=== PATIENT | female | born 1995 | race Caucasian/White ===

== ENCOUNTER 2018-11-01 17:06 | Emergency (ER) | payer OTHER ==
--- NOTE | 2018-11-01 17:14 | PDOC ---
Rapid Medical Evaluation Chief Complaint: Respiratory Time Seen by Provider: 11/01/18 17:12 Medical Evaluation: 11/01/18 17:12 I performed a brief in person evaluation. CC: Cough HPI: Pt is a 22 Yo female with a cough x 1 day. PE: Skin: Clear Lungs: Clear Heart: RRR MS: Moves all extremities without difficulty Neuro: Alert Psych: Appropriate affect Pt will go to [facility] for further evaluation. Discharge Disposition - Diagnosis Cough - Referrals - Patient Instructions - Post Discharge Activity
[2018-11-01 17:16] VITALS: BP 105/54; PULSE 106; TEMP 99.2; BMI 38.0
[2018-11-01] MEDS ORDERED: guaiFENesin/CODEINE 10 ML UNIT-DOSE CUPS PO ONE (18:19)
[2018-11-01] MEDS ORDERED: ONDANSETRON *ODT* 4 MG TABLET SL ONE (18:19)
[2018-11-01] MEDS ORDERED: DEXAMETHASONE LIQUID 0.5 MG/5 ML 240 ML BULK BOTTLE PO ONE (18:19)
[2018-11-01] MEDS ORDERED: ALBUTEROL SO4 2.5/IPRATROPIUM 0.5 INH SOL 3 ML VIAL.NEB. NEB ONE ×2 (18:19→18:22)
[2018-11-01] MEDS ORDERED: DEXAMETHASONE SOD PHOSPHATE 10 MG/1 ML VIAL ONE (18:21)
[2018-11-01] MEDS ORDERED: ONDANSETRON *ODT* 4 MG TABLET ONE (18:21)
[2018-11-01] MEDS ORDERED: guaiFENesin/CODEINE 5 ML UNIT-DOSE CUPS PO ONE (18:22)
--- NOTE | 2018-11-01 19:41 | PDOC ---
History of Present Illness - General Chief Complaint: Respiratory Stated Complaint: ASTHMA Time Seen by Provider: 11/01/18 17:12 History Source: Patient Exam Limitations: No Limitations Past History - Travel Traveled outside of the country in the last 30 days: No Close contact w/someone who was outside of country & ill: No - Past History Allergies/Adverse Reactions: Allergies No Known Allergies Allergy (Verified 11/01/18 17:15) Home Medications: Ambulatory Orders Albuterol Sulfate Inhaler - [Ventolin HFA Inhaler -] 1 - 2 inh PO Q4H #1 inhaler 11/01/18 Guaifenesin AC [Robitussin AC] 10 ml PO HS #100 ml MDD 1 11/01/18 Methylprednisolone [Medrol Dose Thang] 4 mg PO ASDIR #21 tablet 11/01/18 Immunization Status Up to Date: No - Social History Smoking Status: Current every day smoker Review of Systems - Review of Systems Able to Perform ROS?: Yes Comments:: 11/01/18 19:33 CONSTITUTIONAL: Absent: fever, chills, diaphoresis, generalized weakness, malaise, loss of appetite HEENT: Absent: rhinorrhea, nasal congestion, throat pain, throat swelling, difficulty swallowing, mouth swelling, ear pain, eye pain, visual Changes CARDIOVASCULAR: Absent: chest pain, loss of consciousness, palpitations, irregular heart rate, peripheral edema RESPIRATORY: Absent: cough, shortness of breath, dyspnea with exertion, orthopnea, wheezing, stridor, hemoptysis GASTROINTESTINAL: Absent: abdominal pain, abdominal distension, nausea, vomiting, diarrhea, constipation, melena, hematochezia GENITOURINARY: Absent: dysuria, frequency, urgency, hesitancy, hematuria, flank pain, genital pain MUSCULOSKELETAL: Absent: myalgia, arthralgia, joint swelling SKIN: Absent: rash, itching, pallor HEMATOLOGIC/IMMUNOLOGIC: Absent: easy bleeding, easy bruising, lymphadenopathy, frequent infections ENDOCRINE: Absent: unexplained weight gain, unexplained weight loss, heat intolerance, cold intolerance NEUROLOGIC: Absent: headache, focal weakness or paresthesias, dizziness, unsteady gait, seizure, mental status changes, bladder or bowel incontinence PSYCHIATRIC: Absent: anxiety, depression, suicidal or homicidal ideation, hallucinations. Is the patient limited Albanian proficient: No *Physical Exam - Vital Signs Last Vital Signs Temp Pulse Resp BP Pulse Ox 99.2 F 106 H 18 105/54 L 97 11/01/18 17:13 11/01/18 17:13 11/01/18 17:13 11/01/18 17:13 11/01/18 17:13 - Physical Exam Comments: 11/01/18 19:33 GENERAL: Well developed, well nourished. Awake and alert. No acute distress. HEENT: Normocephalic, atraumatic. PERRLA, EOMI. No conjunctival pallor. Sclera are non- icteric. Moist mucous membranes. Oropharynx is clear. NECK: Supple. Full ROM. No JVD. Carotid pulses 2+ and symmetric, without bruits. No thyromegaly. No lymphadenopathy. CARDIOVASCULAR: Regular rate and rhythm. No murmurs, rubs, or gallops. Distal pulses are 2+ and symmetric. PULMONARY: No evidence of respiratory distress. Lungs clear to auscultation bilaterally. No wheezing, rales or rhonchi. ABDOMINAL: Soft. Non-tender. Non-distended. No rebound or guarding. No organomegaly. Normoactive bowel sounds. MUSCULOSKELETAL Normal range of motion at all joints. No bony deformities or tenderness. No CVA tenderness. EXTREMITIES: No cyanosis. No clubbing. No edema. No calf tenderness. SKIN: Warm and dry. Normal capillary refill. No rashes. No jaundice. NEUROLOGICAL: Alert, awake, appropriate. Cranial nerves 2-12 intact. No deficits to light touch and temperature in face, upper extremities and lower extremities. No motor deficits in the in face, upper extremities and lower extremities. Normoreflexic in the upper and lower extremities. Normal speech. Toes are down- going bilaterally. Gait is normal without ataxia. PSYCHIATRIC: Cooperative. Good eye contact. Appropriate mood and affect. Moderate Sedation - Procedure Monitoring Vital Signs: Procedure Monitoring Vital Signs Temperature 99.2 F 11/01/18 17:13 Pulse Rate 106 H 11/01/18 17:13 Respiratory Rate 18 11/01/18 17:13 Blood Pressure 105/54 L 11/01/18 17:13 O2 Sat by Pulse Oximetry (%) 97 11/01/18 17:13 ED Treatment Course - Medications Given in the ED: ED Medications Discontinued Medications Generic Name Dose Route Start Last Admin Trade Name Freq PRN Reason Stop Dose Admin Albuterol/Ipratropium 1 amp 11/01/18 18:19 11/01/18 19:16 Duoneb - NEB 11/01/18 18:20 1 amp ONCE ONE Administration Dexamethasone 10 mg 11/01/18 18:19 11/01/18 19:16 Decadron Liquid - PO 11/01/18 18:20 1 ml ONCE ONE Administration Guaifenesin/Codeine Phosphate 10 ml 11/01/18 18:19 11/01/18 19:16 Robitussin Ac - PO 11/01/18 18:20 10 ml ONCE ONE Administration Ondansetron HCl 4 mg 11/01/18 18:19 11/01/18 19:16 Zofran Odt - SL 11/01/18 18:20 4 mg ONCE ONE Administration *DC/Admit/Observation/Transfer Diagnosis at time of Disposition: Bronchitis - Discharge Dispostion Disposition: HOME Condition at time of disposition: Stable Decision to Admit order: No - Referrals Referrals: Gaviota Messina MD [Primary Care Provider] - - Patient Instructions Printed Discharge Instructions: DI for Acute Bronchitis Additional Instructions: You have bronchitis. Your flu test was negative today. Please take the albuterol inhaler every 4 hours until her symptoms resolve. Please take the Medrol Dosepak (steroids) as directed. Start taking them tomorrow. You may take Robitussin with codeine for cough. He does before bed. Do not drink or drive after taking his medication as it may make you sleepy. Please follow up with your primary care doctor this week. Return to the ER if you have difficulty breathing, shortness of breath, nausea, vomiting or give any changes in her symptoms. - Post Discharge Activity Forms/Work/School Notes: Back to Work
== END 2018-11-01 20:01 | disposition home or self-care (01) ==
LOC: JERFT 17:06 → EDBD 17:06 → JERFT 20:01
PROC: 3E0F7GC Introduction of Other Therapeutic Substance into Respiratory Tract, Via Natural or Artificial Opening (ICD-10-PCS; principal; 2018-11-01)
DX: J20.9 Acute bronchitis, unspecified (principal)
CPT/HCPCS: 87804; 99281-25; Q0162

== ENCOUNTER 2019-12-04 13:55 | Emergency (ER) | payer OTHER ==
[2019-12-04 14:16] VITALS: BMI 35.2
[2019-12-04] MEDS ORDERED: SODIUM CHLORIDE 1,000 ML IV STA (15:30)
[2019-12-04] MEDS ORDERED: ACETAMINOPHEN 1000 MG/100 ML VIAL (NON FORMULARY) IVPB ONE (15:30)
[2019-12-04] MEDS ORDERED: ACETAMINOPHEN INJECTION 100 ML IVPB ONE (15:41)
[2019-12-04] MEDS ORDERED: ALBUTEROL SO4 2.5/IPRATROPIUM 0.5 INH SOL 3 ML VIAL.NEB. NEB ONE ×2 (15:50→15:56)
[2019-12-04] MEDS ORDERED: methylPREDNISolone NA SUCC 125 MG/2 ML VIAL IVPUSH ONE (15:50)
[2019-12-04] MEDS ORDERED: methylPREDNISolone NA SUCC 125 MG/2 ML VIAL ONE (15:56)
[2019-12-04 16:17] LABS: BASO % 0.2 % (0-2.0); HEMATOCRIT 42.7 % (32.4-45.2); LYMPH % 9.3 % (8-40); MCHC 32.8 g/dl (32.0-36.0); MEAN CELL VOLUME 85.3 fl (80-96); MEAN PLT VOLUME 8.6 fl (7.5-11.1); MONO % 13.2 % (3.8-10.2); NEUT % 77.3 % (42.8-82.8); PLATELET COUNT 232 K/MM3 (134-434); RDW 13.7 % (11.6-15.6); WHITE BLOOD COUNT 8.1 K/mm3 (4.0-10.0)
[2019-12-04 16:50] LABS: ALBUMIN 3.8 g/dl (3.4-5.0); BILIRUBIN,TOTAL 0.3 mg/dL (0.2-1); CALCIUM 8.8 mg/dL (8.5-10.1); CREATININE 0.9 mg/dL (0.55-1.3); POTASSIUM 3.8 mmol/L (3.5-5.1); TOT PROT 7.4 g/dl (6.4-8.2)
[2019-12-04 18:39] LABS: PH,URINE 5.5 (5.0-8.0); URINE APPEARANCE CLEAR; URINE BILIRUBIN NEGATIVE (NEGATIVE); URINE COLOR YELLOW; URINE GLUCOSE (UA) NEGATIVE (NEGATIVE); URINE KETONE NEGATIVE (NEGATIVE); URINE LEUK ESTERASE NEGATIVE (NEGATIVE); URINE NITRITE NEGATIVE (NEGATIVE); URINE PROTEIN NEGATIVE (NEGATIVE); URINE UROBILINOGEN 0.2 mg/dL (0.2-1.0)
--- NOTE | 2019-12-04 19:01 | PDOC ---
History of Present Illness - General History Source: Patient Exam Limitations: No Limitations <CarolineJolanta - Last Filed: 12/05/19 19:25> <Balaji Mir - Last Filed: 12/08/19 00:47> - General Chief Complaint: Shortness of Breath Stated Complaint: COUGH/ABD PAIN Time Seen by Provider: 12/04/19 15:05 Past History - Travel Traveled outside of the country in the last 30 days: No Close contact w/someone who was outside of country & ill: No - Past Medical History Asthma: Yes COPD: No - Surgical History Gastric Stapling: No Lung Surgery: No - Immunization History Immunization Up to Date: No - Psycho Social/Smoking Cessation Hx Smoking History: Never smoked Have you smoked in the past 12 months: No Hx Alcohol Use: No Drug/Substance Use Hx: Yes (marijuana) <Jolanta Velazquez - Last Filed: 12/05/19 19:25> <Balaji Mir - Last Filed: 12/08/19 00:47> - Past Medical History Allergies/Adverse Reactions: Allergies Allergy/AdvReac Type Severity Reaction Status Date / Time No Known Allergies Allergy Verified 11/01/18 17:15 Home Medications: Ambulatory Orders Albuterol Sulfate Inhaler - [Ventolin HFA Inhaler -] 1 - 2 inh PO Q4H #1 inhaler 11/01/18 Guaifenesin AC [Robitussin AC] 10 ml PO HS #100 ml MDD 1 11/01/18 Methylprednisolone [Medrol Dose Thang] 4 mg PO ASDIR #21 tablet 11/01/18 Oseltamivir Phosphate [Tamiflu] 75 mg PO BID #10 capsule 12/04/19 Review of Systems - Review of Systems Able to Perform ROS?: Yes Comments:: 12/04/19 19:17 CONSTITUTIONAL: Present: Fever, chills, body aches Absent: diaphoresis, generalized weakness, malaise, loss of appetite HEENT: Present: rhinorrhea, nasal congestion, throat pain. Absent: difficulty swallowing, mouth swelling, ear pain, eye pain, visual Changes CARDIOVASCULAR: Absent: chest pain, loss of consciousness, palpitations, irregular heart rate, peripheral edema RESPIRATORY: Present: Cough Absent: shortness of breath, dyspnea with exertion, orthopnea, wheezing, stridor, hemoptysis GASTROINTESTINAL: Present: Abdominal pain Absent: abdominal distension, nausea, vomiting, diarrhea , constipation, melena, hematochezia SKIN: Absent: rash, itching, pallor NEUROLOGIC: Present: headache Absent: focal weakness or paresthesias, dizziness, unsteady gait, seizure, mental status changes, bladder or bowel incontinence Is the patient limited Cameroonian proficient: No <Jolanta Velazquez - Last Filed: 12/05/19 19:25> *Physical Exam - Vital Signs Last Vital Signs Temp Pulse Resp BP Pulse Ox 99.4 F 115 H 22 H 103/78 94 L 12/04/19 14:11 12/04/19 14:11 12/04/19 14:11 12/04/19 14:11 12/04/19 14:11 - Physical Exam 12/04/19 19:18 GENERAL: Well developed, well nourished. Awake and alert. No acute distress. HEENT: Normocephalic, atraumatic. PERRLA, EOMI. No conjunctival pallor. Sclera are non- icteric. Moist mucous membranes. Oropharynx is clear. NECK: Supple. Full ROM. No lymphadenopathy. CARDIOVASCULAR: Regular rate and rhythm. No murmurs, rubs, or gallops. Distal pulses are 2+ and symmetric. PULMONARY: No evidence of respiratory distress. Lungs with wheezing throughout all lung valdovinos. No rales or rhonchi. ABDOMINAL: TTP of RLQ. Soft. Non-tender. Non-distended. No rebound or guarding. No organomegaly. Normoactive bowel sounds. MUSCULOSKELETAL Normal range of motion at all joints. No bony deformities or tenderness. No CVA tenderness. EXTREMITIES: No cyanosis. No clubbing. No edema. No calf tenderness. SKIN: Warm and dry. Normal capillary refill. No rashes. No jaundice. NEUROLOGICAL: Alert, awake, appropriate. Cranial nerves 2-12 intact. No deficits to light touch and temperature in face, upper extremities and lower extremities. No motor deficits in the in face, upper extremities and lower extremities. Normoreflexic in the upper and lower extremities. Normal speech. Toes are down- going bilaterally. Gait is normal without ataxia. PSYCHIATRIC: Cooperative. Good eye contact. Appropriate mood and affect. <Jolanta Velazquez - Last Filed: 12/05/19 19:25> - Vital Signs Last Vital Signs Temp Pulse Resp BP Pulse Ox 99.5 F 96 H 22 H 124/83 95 12/04/19 23:02 12/04/19 23:02 12/04/19 14:11 12/04/19 23:02 12/04/19 23:02 <Balaji Mir - Last Filed: 12/08/19 00:47> ED Treatment Course - LABORATORY CBC & Chemistry Diagram: 12/04/19 15:50 12/04/19 15:50 - ADDITIONAL ORDERS Additional order review: Laboratory Results 12/04/19 12/04/19 18:20 15:50 Sodium 141 Potassium 3.8 Chloride 110 H Carbon Dioxide 24 Anion Gap 8 BUN 13.0 Creatinine 0.9 Est GFR (CKD-EPI)AfAm 103.00 Est GFR (CKD-EPI)NonAf 88.87 Random Glucose 87 Calcium 8.8 Total Bilirubin 0.3 AST 26 ALT 32 Alkaline Phosphatase 98 Total Protein 7.4 Albumin 3.8 Urine Color Yellow Urine Appearance Clear Urine pH 5.5 Ur Specific [place] 1.023 Urine Protein Negative Urine Glucose (UA) Negative Urine Ketones Negative Urine Blood Negative Urine Nitrite Negative Urine Bilirubin Negative Urine Urobilinogen 0.2 Ur Leukocyte Esterase Negative 12/04/19 15:50 RBC 5.00 MCV 85.3 MCHC 32.8 RDW 13.7 MPV 8.6 Neutrophils % 77.3 Lymphocytes % 9.3 Monocytes % 13.2 H Eosinophils % 0.0 Basophils % 0.2 - RADIOLOGY Radiology Studies Ordered: Category Date Time Status CHEST PA & LAT [RAD] Stat Radiology 12/04/19 15:49 Completed - Medications Given in the ED: ED Medications Discontinued Medications Generic Name Dose Route Start Last Admin Trade Name Farida PRN Reason Stop Dose Admin Acetaminophen 1,000 mg 12/04/19 15:30 12/04/19 15:52 Ofirmev Injection - IVPB 12/04/19 15:31 1,000 mg ONCE ONE Administration Albuterol/Ipratropium 1 amp 12/04/19 15:50 12/04/19 16:04 Duoneb - NEB 12/04/19 15:51 1 amp ONCE ONE Administration Sodium Chloride 1,000 mls @ 1,000 mls/hr 12/04/19 15:30 12/04/19 15:51 Normal Saline - IV 12/04/19 16:29 1,000 mls/hr ASDIR STA Administration Methylprednisolone Sodium Succinate 125 mg 12/04/19 15:50 12/04/19 16:04 Solu-Medrol - IVPUSH 12/04/19 15:51 125 mg ONCE ONE Administration <Jolanta Velazquez - Last Filed: 12/05/19 19:25> - LABORATORY CBC & Chemistry Diagram: 12/04/19 15:50 12/04/19 15:50 - ADDITIONAL ORDERS Additional order review: 12/04/19 18:20 Urine Culture - Final Urine - Urine Clean Catch NO GROWTH OBTAINED 12/04/19 15:50 RBC 5.00 MCV 85.3 MCHC 32.8 RDW 13.7 MPV 8.6 Neutrophils % 77.3 Lymphocytes % 9.3 Monocytes % 13.2 H Eosinophils % 0.0 Basophils % 0.2 - Medications Given in the ED: ED Medications Discontinued Medications Generic Name Dose Route Start Last Admin Trade Name Freq PRN Reason Stop Dose Admin Acetaminophen 1,000 mg 12/04/19 15:30 12/04/19 15:52 Ofirmev Injection - IVPB 12/04/19 15:31 1,000 mg ONCE ONE Administration Albuterol/Ipratropium 1 amp 12/04/19 15:50 12/04/19 16:04 Duoneb - NEB 12/04/19 15:51 1 amp ONCE ONE Administration Sodium Chloride 1,000 mls @ 1,000 mls/hr 12/04/19 15:30 12/04/19 15:51 Normal Saline - IV 12/04/19 16:29 1,000 mls/hr ASDIR STA Administration Methylprednisolone Sodium Succinate 125 mg 12/04/19 15:50 12/04/19 16:04 Solu-Medrol - IVPUSH 12/04/19 15:51 125 mg ONCE ONE Administration <Balaji Mir - Last Filed: 12/08/19 00:47> Medical Decision Making - Medical Decision Making 12/04/19 19:20 The patient is a 24-year-old female with past medical history of asthma, presents to the ER today for abdominal pain, fevers, body aches, wheezing and shortness of breath. She states she was seen at [facility] yesterday but was told she had a panic attack and was discharged home. She states she had a CT Scan but is unsure of what. She states that she still does not feel well. She did not get a flu shot this year. She states that she feels like she is wheezing. She has never been intubated for her asthma. A/P: Influenza On exam lungs with scattered wheezing throughout all lung valdovinos. O2 sat 94 in triage. Patient also with tenderness to patient in the right lower quadrant. No rebound or guarding. Basic labs within normal limits. Urine is negative for infection. Improvement in O2 sat after DuoNeb. Spoke with Pepito at [facility]. Patient had a chest CT yesterday which showed a right middle lobe pneumonia. Patient is also flu positive. Patient reports her abdominal pain has improved with IV Tylenol Will need outpatient antibiotics and steroids. Patient states she did not receive a prescription from [facility]. Signout given to SUZAN Evans. Pending reevaluation of O2 sats and abdominal exam. <Jolanta Velazquez - Last Filed: 12/05/19 19:25> - Medical Decision Making The patient was seen and evaluated in conjunction with KAYLEY Velazquez under my direct supervision, ancillary studies were reviewed. I agree with the plan as outlined by KAYLEY Velazquez . <Balaji Mir - Last Filed: 12/08/19 00:47> Discharge - Discharge Information Problems reviewed: Yes <Jolanta Velazquez - Last Filed: 12/05/19 19:25> <Balaji Mir - Last Filed: 12/08/19 00:47> - Discharge Information Clinical Impression/Diagnosis: Right ovarian cyst, Influenza Pneumonia Qualifiers: Pneumonia type: due to unspecified organism Laterality: right Lung location: middle lobe of lung Qualified Code(s): J18.9 - Pneumonia, unspecified organism Disposition: HOME - Additional Discharge Information Prescriptions: Oseltamivir Phosphate [Tamiflu] 75 mg PO BID #10 capsule - Patient Discharge Instructions Patient Printed Discharge Instructions: Influenza Additional Instructions: continue medicine that was given to you by [facility] for pneumonia. 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 Return to the emergency room if symptoms worsen. - Post Discharge Activity Work/Back to School Note: Back to Work
--- NOTE | 2019-12-04 19:49 | PDOC ---
*Physical Exam - Vital Signs Last Vital Signs Temp Pulse Resp BP Pulse Ox 99.4 F 115 H 22 H 103/78 94 L 12/04/19 14:11 12/04/19 14:11 12/04/19 14:11 12/04/19 14:11 12/04/19 14:11 ED Treatment Course - LABORATORY CBC & Chemistry Diagram: 12/04/19 15:50 12/04/19 15:50 - ADDITIONAL ORDERS Additional order review: Laboratory Results 12/04/19 12/04/19 18:20 15:50 Sodium 141 Potassium 3.8 Chloride 110 H Carbon Dioxide 24 Anion Gap 8 BUN 13.0 Creatinine 0.9 Est GFR (CKD-EPI)AfAm 103.00 Est GFR (CKD-EPI)NonAf 88.87 Random Glucose 87 Calcium 8.8 Total Bilirubin 0.3 AST 26 ALT 32 Alkaline Phosphatase 98 Total Protein 7.4 Albumin 3.8 Urine Color Yellow Urine Appearance Clear Urine pH 5.5 Ur Specific [place] 1.023 Urine Protein Negative Urine Glucose (UA) Negative Urine Ketones Negative Urine Blood Negative Urine Nitrite Negative Urine Bilirubin Negative Urine Urobilinogen 0.2 Ur Leukocyte Esterase Negative 12/04/19 15:50 RBC 5.00 MCV 85.3 MCHC 32.8 RDW 13.7 MPV 8.6 Neutrophils % 77.3 Lymphocytes % 9.3 Monocytes % 13.2 H Eosinophils % 0.0 Basophils % 0.2 - Medications Given in the ED: ED Medications Discontinued Medications Generic Name Dose Route Start Last Admin Trade Name Freq PRN Reason Stop Dose Admin Acetaminophen 1,000 mg 12/04/19 15:30 12/04/19 15:52 Ofirmev Injection - IVPB 12/04/19 15:31 1,000 mg ONCE ONE Administration Albuterol/Ipratropium 1 amp 12/04/19 15:50 12/04/19 16:04 Duoneb - NEB 12/04/19 15:51 1 amp ONCE ONE Administration Sodium Chloride 1,000 mls @ 1,000 mls/hr 12/04/19 15:30 12/04/19 15:51 Normal Saline - IV 12/04/19 16:29 1,000 mls/hr ASDIR STA Administration Methylprednisolone Sodium Succinate 125 mg 12/04/19 15:50 12/04/19 16:04 Solu-Medrol - IVPUSH 12/04/19 15:51 125 mg ONCE ONE Administration Medical Decision Making - Medical Decision Making 12/04/19 19:41 Patient reports that she has RLQ pain for 1 week. reports respiratory symptoms started fever started CTAP: right ovarian cyst. normal appendix. will d/ chome. patient denies pain. Discharge - Discharge Information Problems reviewed: Yes Clinical Impression/Diagnosis: Right ovarian cyst, Influenza Pneumonia Qualifiers: Pneumonia type: due to unspecified organism Laterality: right Lung location: middle lobe of lung Qualified Code(s): J18.9 - Pneumonia, unspecified organism Disposition: HOME - Additional Discharge Information Prescriptions: Oseltamivir Phosphate [Tamiflu] 75 mg PO BID #10 capsule - Follow up/Referral - Patient Discharge Instructions Patient Printed Discharge Instructions: Influenza Additional Instructions: continue medicine that was given to you by [facility] for pneumonia. 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 Return to the emergency room if symptoms worsen. - Post Discharge Activity Work/Back to School Note: Back to Work
[2019-12-04 23:25] VITALS: BP 124/83; PULSE 96; TEMP 99.5
== END 2019-12-05 01:13 | disposition home or self-care (01) ==
LOC: JER 13:55
PROC: 3E0F7GC Introduction of Other Therapeutic Substance into Respiratory Tract, Via Natural or Artificial Opening (ICD-10-PCS; principal; 2019-12-04)
PROC: 3E033NZ Introduction of Analgesics, Hypnotics, Sedatives into Peripheral Vein, Percutaneous Approach (ICD-10-PCS; 2019-12-04)
PROC: 3E0333Z Introduction of Anti-inflammatory into Peripheral Vein, Percutaneous Approach (ICD-10-PCS; 2019-12-04)
DX: J09.X1 Influenza due to identified novel influenza A virus with pneumonia (principal); N83.201 Unspecified ovarian cyst, right side
CPT/HCPCS: 36415; 71046-TC-FY; 74177-TC; 80053; 81003; 84703; 85025; 87086; 87804; 94640; 96374; 96375; 99284-25; J0131; J7030; Q9967

== ENCOUNTER 2020-05-19 06:51 | Emergency (ER) | payer OTHER ==
[2020-05-19 07:08] VITALS: BMI 34.2
--- NOTE | 2020-05-19 07:58 | PDOC ---
History of Present Illness - General Chief Complaint: Sore Throat Stated Complaint: 17 PREG/ ABDOMIAL PAIN COUGHING Time Seen by Provider: 05/19/20 07:58 - History of Present Illness Initial Comments: 05/19/20 08:09 24 F 18w presented to the ED with 1 day of sore throat and chest pain. She said she has 1 day of sore throat and chest pain. She endorse URI symptoms such as cough, sniffling, SOB, N/V. In addition, she has chest pain localized around the sternum, no raditiation . She denies sick contact. When she coughed yesterday, she felt pain around the abdomen, which scared her. That's why she is here. She has regular follow up with her OBGYN. last U/S was 2 weeks ago. Today, she doesn't have N/V, but endorse cough, chest pain, SOB still. PMH: asthma PSH: none Allergy: none SS: none Med: tylenol PCP: jerry WALL GENERAL/CONSTITUTIONAL: No fever, no lethargy HEAD, EYES, EARS, NOSE AND THROAT: No eye discharge. No ear pain or discharge. sore throat. CARDIOVASCULAR: chest pain. RESPIRATORY: cough, no wheezing. GASTROINTESTINAL: pain, nausea, vomiting, no diarrhea or constipation. GENITOURINARY: No dysuria, no change in urine output MUSCULOSKELETAL: No joint pain. No neck or back pain. SKIN: No rash NEUROLOGIC: No headache, loss of consciousness, irritability. ENDOCRINE: No increased thirst. No abnormal weight change. ALLERGIC/IMMUNOLOGIC: No hives or skin allergy PE GENERAL: Awake, alert, and appropriately interactive EYES: PERRLA, clear conjunctiva, no redness on the throat. NOSE: Nose is clear with clear discharge EARS: EACs and TMs are normal THROAT: Moist mucosa, oropharynx is clear without erythema or exudates, NECK: Supple, no adenopathy, no meningismus CHEST: Lungs are clear without crackles, or wheezes HEART: Regular rhythm, normal S1 and S2, no murmurs ABDOMEN: Soft and nontender with normal bowel sounds, no organomegaly, no mass, no rebound, no guarding EXTREMITIES: Normal inspection, Normal range of motion, no edema. No clubbing or cyanosis. NEURO: Behavior normal for age, Cranial nerves II through XII grossly intact., normal tone SKIN: Unremarkable, no rash, no swelling, no bruising, no signs of injury Past History - Medical History Allergies/Adverse Reactions: Allergies Allergy/AdvReac Type Severity Reaction Status Date / Time No Known Allergies Allergy Verified 05/19/20 07:08 Home Medications: Ambulatory Orders Albuterol Sulfate Inhaler - [Ventolin HFA Inhaler -] 1 - 2 inh PO Q4H #1 inhaler 11/01/18 Guaifenesin AC [Robitussin AC] 10 ml PO HS #100 ml MDD 1 11/01/18 Methylprednisolone [Medrol Dose Thang] 4 mg PO ASDIR #21 tablet 11/01/18 Oseltamivir Phosphate [Tamiflu] 75 mg PO BID #10 capsule 12/04/19 Asthma: Yes COPD: No - Surgical History Gastric Stapling: No Lung Surgery: No - Immunization History Immunization Up to Date: No - Psycho-Social/Smoking History Smoking History: Never smoked Have you smoked in the past 12 months: No - Substance Abuse Hx (Audit-C & DAST Scrn) How often the patient has a drink containing alcohol: Never Score: In Men: 4 or > Positive; In Women: 3 or > Positive: 0 Screen Result (Pos requires Nsg. Audit-10AR): Negative *Physical Exam - Vital Signs Last Vital Signs Temp Pulse Resp BP Pulse Ox 99.2 F 89 18 101/57 L 99 05/19/20 07:06 05/19/20 07:06 05/19/20 07:06 05/19/20 07:06 05/19/20 07:06 ED Treatment Course - LABORATORY CBC & Chemistry Diagram: 05/19/20 09:00 05/19/20 09:00 Medical Decision Making - Medical Decision Making 05/19/20 10:58 24 F 18 w present here for abdominal pain, admitted sick contact, now had viral URI syndrome. DDX: viral syndrome Plan: CBC, CMP, trop , EKG, transabdominal ultrasond lab showed mildly elevated WBC, but she is afebrile. EKG is normal, no ST changes suggesting ischemic Transabdominal U/S show 18 W 6 days. Patient will be discharged with viral syndrome, rec supportive treatment. Discharge - Discharge Information Problems reviewed: Yes Clinical Impression/Diagnosis: Sore throat, Viral syndrome Condition: Stable Disposition: HOME - Admission No - Follow up/Referral - Patient Discharge Instructions Patient Printed Discharge Instructions: DI for Viral Syndrome Additional Instructions: You are here for abdominal pain You are worrying about the . Ultrasound showed 18 week, and 6 days. No abnormality. You are having viral syndrome URI ( upper respiratory infection). Treatment is supportive treatment : bed rest, plenty of fluid, and tylenol for pain control. Please see your PCP if you are feeling worse. Please see your OBGYN for follow up If you are having severe high fever, nausea, vomitting, abdominal pain, vaginal bleeding, please come back. - Post Discharge Activity Work/Back to School Note: Back to Work
--- NOTE | 2020-05-19 08:28 | PDOC ---
Attending Attestation - Resident Resident Name: Harris De León - ED Attending Attestation I have performed the following: I have examined & evaluated the patient, The case was reviewed & discussed with the resident, I agree w/resident's findings & plan, Exceptions are as noted - HPI HPI: 05/19/20 08:20 24YOF, currently ~18 weeks and currently getting regular TRAIN STARTER care, and without additional PMH who p/w 1 day of sore throat, and dull mild chest discomfort x1 day which is slightly worse with deep breathing. She additionally notes nausea and congestion, as well as dry cough. Denies f/c, vomiting, diarrhea, constipation, n/t/w, ALONSO, lightheadedness, vertigo, vision problems, neck pain, back pain, abdominal pain (except minimal discomfort when coughing), vaginal bleeding or discharge, dysuria, hematuria, or any other symptoms. - Physicial Exam PE: 05/19/20 08:25 GENERAL: well-appearing, A/Ox4, no distress, answers questions appropriately, comfortable and walking through department without issue HEENT: PERRLA, EOMI, moist mucous membranes NECK/BACK: no midline ttp, no spinal step-off or deformity, no hematoma, full ROM, neck supple CARDIOVASCULAR: regular rate/rhythm, no MGR, strong peripheral pulses, capillary refill <2 seconds, extremities wwp, no edema LUNGS/RESPIRATORY: no respiratory distress, CTAB GI/ABDOMEN: gravid, symmetric [id number], normoactive BS, soft, no ttp, no midline pulsatile masses : no CVA tenderness MSK/EXTREMITIES: no muscle atrophy, no acute deformity SKIN: warm and dry, no pallor, no jaundice, no rash, no pathologic-appearing bruising, no skin breakdown, no cuts, no lesions NEUROLOGICAL: GCS 15, CN II-XII grossly intact, 5/5 strength proximally and distally, no facial droop - Medical Decision Making 05/19/20 08:26 24YOF who is and who p/w sore throat, cough, congestion. Initial Vital Signs Temp Pulse Resp BP Pulse Ox 99.2 F 89 18 101/57 L 99 05/19/20 07:06 05/19/20 07:06 05/19/20 07:06 05/19/20 07:06 05/19/20 07:06 DDX IBNLT: most likely viral URI, possible early mild COVID-19. Unlikely bacterial PNA as patient appears very well. Possible influenza, bronchitis, etc. W/U ordered: Labs as noted below, COVID-19 swab, EKG TX ordered: Tylenol EKG: Reviewed; results as noted in ECG Review section. Laboratory Tests 05/19/20 05/19/20 05/19/20 09:00 09:00 09:00 WBC 13.5 H RBC 4.15 Hgb 11.2 Hct 34.2 D MCV 82.5 MCH 27.0 MCHC 32.7 RDW 13.7 Plt Count 258 MPV 8.5 Sodium 140 Potassium 4.3 Chloride 108 H Carbon Dioxide 23 Anion Gap 9 BUN 5.6 L Creatinine 0.4 L Est GFR (CKD-EPI)AfAm 167.78 Est GFR (CKD-EPI)NonAf 144.76 Random Glucose 88 Calcium 8.7 Total Bilirubin 0.2 AST 31 ALT 55 Alkaline Phosphatase 80 Troponin I < 0.02 Total Protein 6.5 Albumin 2.9 L Urine Color Urine Appearance Urine pH Ur Specific [place] Urine Protein Urine Glucose (UA) Urine Ketones Urine Blood Urine Nitrite Urine Bilirubin Urine Urobilinogen Ur Leukocyte Esterase Urine WBC (Auto) Urine RBC (Auto) Urine Casts (Auto) U Epithel Cells (Auto) Urine Bacteria (Auto) COVID-19 (MYRNA) Not detected 05/19/20 10:10 WBC RBC Hgb Hct MCV MCH MCHC RDW Plt Count MPV Sodium Potassium Chloride Carbon Dioxide Anion Gap BUN Creatinine Est GFR (CKD-EPI)AfAm Est GFR (CKD-EPI)NonAf Random Glucose Calcium Total Bilirubin AST ALT Alkaline Phosphatase Troponin I Total Protein Albumin Urine Color Yellow Urine Appearance Clear Urine pH 6.0 Ur Specific [place] 1.020 Urine Protein Negative Urine Glucose (UA) Negative Urine Ketones Negative Urine Blood Negative Urine Nitrite Negative Urine Bilirubin Negative Urine Urobilinogen 0.2 Ur Leukocyte Esterase 1+ H Urine WBC (Auto) 18 Urine RBC (Auto) 4 Urine Casts (Auto) 1 U Epithel Cells (Auto) 13 Urine Bacteria (Auto) 683 COVID-19 (MYRNA) This Pt has gotten significant relief of symptoms while in the ED. The patient has no new hypoxia, significant respiratory distress, or other sxs requiring admission. On last reassessment, vitals are wnl and exam is benign. Workup is not concerning for emergency-level pathology at this time. This Pt is appropriate for discharge with close outpatient follow up. They are comfortable with this plan and will call PCP within 2 days for follow-up conversation. They are instructed on importance of quarantine and further outpatient testing. Discharge instructions for COVID-19 patients and household members given. Specific return precautions are discussed and they will come back to the ER if necessary. Last Vital Signs Temp Pulse Resp BP Pulse Ox 98.8 F 88 16 105/62 100 05/19/20 10:30 05/19/20 10:30 05/19/20 10:30 05/19/20 10:30 05/19/20 10:30 Heart Score/ECG Review #1 Sinus rhythm, rate 75, normal axis and intervals, no ischemic changes Discharge - Discharge Information Problems reviewed: Yes Clinical Impression/Diagnosis: Sore throat, Viral syndrome Condition: Stable Disposition: HOME - Admission No - Follow up/Referral - Patient Discharge Instructions Patient Printed Discharge Instructions: DI for Viral Syndrome Additional Instructions: You are here for abdominal pain You are worrying about the . Ultrasound showed 18 week, and 6 days. No abnormality. You are having viral syndrome URI ( upper respiratory infection). Treatment is supportive treatment : bed rest, plenty of fluid, and tylenol for pain control. Please see your PCP if you are feeling worse. Please see your OBGYN for follow up If you are having severe high fever, nausea, vomitting, abdominal pain, vaginal bleeding, please come back. - Post Discharge Activity Work/Back to School Note: Back to Work
[2020-05-19] MEDS ORDERED: ACETAMINOPHEN 325 MG TABLET (FP) PO ONE (08:32)
[2020-05-19 09:11] LABS: HEMATOCRIT 34.2 % (32.4-45.2); HEMOGLOBIN 11.2 GM/dL (10.7-15.3); MCHC 32.7 g/dl (32.0-36.0); MEAN CELL VOLUME 82.5 fl (80-96); MEAN PLT VOLUME 8.5 fl (7.5-11.1); PLATELET COUNT 258 K/MM3 (134-434); RBC 4.15 M/mm3 (3.60-5.2); RDW 13.7 % (11.6-15.6); WHITE BLOOD COUNT 13.5 K/mm3 (4.0-10.0)
[2020-05-19 09:32] LABS: ALBUMIN 2.9 g/dl (3.4-5.0); ALK PHOS 80 U/L (45-117); ANION GAP 9 MMOL/L (8-16); BILIRUBIN,TOTAL 0.2 mg/dL (0.2-1); BLOOD UREA NITROGEN 5.6 mg/dL (7-18); CALCIUM 8.7 mg/dL (8.5-10.1); CHLORIDE 108 mmol/L (98-107); CO2 23 mmol/L (21-32); CREATININE 0.4 mg/dL (0.55-1.3); GLUCOSE,RANDOM 88 mg/dL (74-106); POTASSIUM 4.3 mmol/L (3.5-5.1); SGOT/AST 31 U/L (15-37); SGPT/ALT 55 U/L (13-61); SODIUM 140 mmol/L (136-145); TOT PROT 6.5 g/dl (6.4-8.2)
[2020-05-19 11:08] LABS: EPI CELLS 13 /uL (0-25.1); HYALINE CASTS 1 /uL (0-3.1); URINE APPEARANCE CLEAR; URINE BACTERIA 683 /uL (0-1359); URINE BILIRUBIN NEGATIVE (NEGATIVE); URINE COLOR YELLOW; URINE GLUCOSE (UA) NEGATIVE (NEGATIVE); URINE KETONE NEGATIVE (NEGATIVE); URINE LEUK ESTERASE 1+ (NEGATIVE); URINE NITRITE NEGATIVE (NEGATIVE); URINE PROTEIN NEGATIVE (NEGATIVE); URINE RBC 4 /uL (0-23.9); URINE UROBILINOGEN 0.2 mg/dL (0.2-1.0); URINE WBC 18 /uL (0-25.8)
[2020-05-19] MEDS ORDERED: ACETAMINOPHEN 325 MG TABLET (FP) ONE (11:10)
[2020-05-19 11:17] VITALS: BP 105/62; PULSE 88; TEMP 98.8
--- NOTE | 2020-05-19 17:21 | EKG ---
Test Reason : Blood Pressure : / mmHG Vent. Rate : 075 BPM Atrial Rate : 075 BPM P-R Int : 190 ms QRS Dur : 078 ms QT Int : 386 ms P-R-T Axes : 049 031 036 degrees QTc Int : 431 ms NORMAL SINUS RHYTHM NORMAL ECG NO PREVIOUS ECGS AVAILABLE Confirmed by MD Javier Edward ([id number]) on 05/19/2020 5:20:47 PM Referred By: Confirmed By:Octavio Javier MD
== END 2020-05-19 11:15 | disposition home or self-care (01) ==
LOC: JER 06:51
DX: J20.9 Acute bronchitis, unspecified (principal)
CPT/HCPCS: 36415; 76815-TC; 80053; 81003; 84484; 85027; 87086; 93005; 93010; 99285-25; U0003

== ENCOUNTER 2020-05-19 20:34 | Emergency (ER) | payer OTHER ==
--- NOTE | 2020-05-19 20:44 | PDOC ---
Rapid Medical Evaluation Medical Evaluation: Allergies Allergy/AdvReac Type Severity Reaction Status Date / Time No Known Allergies Allergy Verified 05/19/20 07:08 05/19/20 20:42 The patient is a 24 y/o F with PMH of anxiety, 18 weeks , presents to the ER with shortness of breath and vomiting. She was seen earlier today and d iagnosed with a viral syndrome and discharged home. She states she is still not feeling well, so she came back to the ER for evaluation. Exam: speaking in full clear sentences. AAOx3 Orders: defer to provider Pt to proceed to the ER for further evaluation Discharge Disposition - Diagnosis Vomiting - Referrals - Patient Instructions - Post Discharge Activity
[2020-05-19 20:46] VITALS: BMI 34.2
--- NOTE | 2020-05-19 21:17 | PDOC ---
History of Present Illness - General Chief Complaint: Shortness of Breath Stated Complaint: VOMITING, SOB Time Seen by Provider: 05/19/20 20:42 Past History - Medical History Allergies/Adverse Reactions: Allergies Allergy/AdvReac Type Severity Reaction Status Date / Time No Known Allergies Allergy Verified 05/19/20 07:08 Home Medications: Ambulatory Orders Albuterol Sulfate Inhaler - [Ventolin HFA Inhaler -] 1 - 2 inh PO Q4H #1 inhaler 11/01/18 Guaifenesin AC [Robitussin AC] 10 ml PO HS #100 ml MDD 1 11/01/18 Methylprednisolone [Medrol Dose Thang] 4 mg PO ASDIR #21 tablet 11/01/18 Oseltamivir Phosphate [Tamiflu] 75 mg PO BID #10 capsule 12/04/19 Asthma: Yes COPD: No - Surgical History Gastric Stapling: No Lung Surgery: No - Immunization History Immunization Up to Date: No - Psycho-Social/Smoking History Smoking History: Never smoked Have you smoked in the past 12 months: No - Substance Abuse Hx (Audit-C & DAST Scrn) How often the patient has a drink containing alcohol: Never Score: In Men: 4 or > Positive; In Women: 3 or > Positive: 0 Screen Result (Pos requires Nsg. Audit-10AR): Negative *Physical Exam - Vital Signs Last Vital Signs Temp Pulse Resp BP Pulse Ox 98.4 F 116 H 20 109/74 96 05/19/20 20:43 05/19/20 20:43 05/19/20 20:43 05/19/20 20:43 05/19/20 20:43 Medical Decision Making - Medical Decision Making 05/19/20 21:44 HPI: 24yo F hx asthma, 18w6d by US (done here today), and recent ED visit this AM presents from home for continued vomiting, chest pain, and SOB. Pt was diagnosed with viral URI this AM (no CXR or CT scan done) and discharged with tylenol. Pt felt okay at the time of discharge but when got home, was unable to keep down any PO liquid or solid. Pt also was unable to sleep due to SOB. Pt c/o 4 days of sore throat, headache, productive cough, SOB, pleuritic exertional substernal nonradiating chest pain, nausea, and NBNB emesis. Endorses feeling hot but no chills or measured fever. Pt had 3mo old niece in house starting 7 days ago who had "baby flu" with cough and vomiting and fever and pt was holding her/kissing her etc. Denies travel, hx DVT/PE, unilateral leg swelling or pain (endorses b/l leg swelling during at end of days), D/C, blood in stool, abdominal pain (endorses mild lower abdominal pressure due to fetus weight, unchanged recently), light-headedness, numbness/tingling, focal weakness. Pt feels baby fluttering around as normal. Denies vaginal bleeding, cramping, vaginal discharge, water breaking. PCP - An ROS: Constitutional: Positive for feeling hot. Negative for chills, fever, fatigue, diaphoresis. HENT: Positive for sore throat, rhinorrhea, congestion. Eyes: Negative for visual disturbance. Respiratory: Positive for shortness of breath and cough. Negative for wheezing. Cardiovascular: Positive for chest pain, leg swelling. Negative for palpitations. Gastrointestinal: Positive for nausea, and vomiting. Negative for abdominal pain, blood in stool, constipation, diarrhea. Genitourinary: Negative for dysuria, flank pain, and hematuria. Musculoskeletal: Negative for myalgias, back pain, and neck pain. Skin: Negative for rash. Neurological: Positive for headaches. Negative for light-headedness, dizziness, vertigo, syncope, weakness, numbness and. Psychiatric/Behavioral: Negative for behavioral problems and confusion. PE: Gen: Alert, NAD, comfortable-appearing. HEENT: PERRL, EOMI, MMM, NCAT. No conjunctival pallor. Sclera are non-icteric. CV: Tachycardic rate and regular rhythm. No murmurs, rubs, or gallops. PULM: No resp distress. CTAB, no wheezes, rales, or rhonchi. Talking in 5-8 word sentences then needs to take deep breath. ABD: soft, NT/ND, no rebound tenderness or guarding, no CVA tenderness. BACK: No TTP of c/t/l-spine. No step-offs or deformities. MSK: No bony deformities. 2+ pulses in all extremities. NEURO: AAOx3. PERRL. No gross CN deficits. Strength and sensation grossly intact throughout. Normal gait. EXTREMITIES: No cyanosis. No clubbing. No edema. No calf tenderness. PSYCH: Normal mood and thought pattern. SKIN: Warm and dry. Normal capillary refill. No rashes. No jaundice. MDM: 24yo F hx asthma, 18w6d by US (done here today), and recent ED visit this AM presents from home for continued vomiting, chest pain, and SOB. Tachycardic 116, otherwise hemodynamically stable, afebrile, benign abdomen, lungs CTAB, talking in 5-8 word sentences. Ddx: COVID, bacterial PNA, viral PNA, URI, viral syndrome, gastritis, PE (due to tachycardia, SOB, pleuritic CP, and , high concern for PE - CTPE), UTI, infection, metabolic derangement, anemia This AM workup reviewed including labs and EKG and abdomen US. Notable for WBC 13.5, good renal clearance, trop neg, and UTI on UA. -UA to check for ketones -Coags -EKG -CTA chest to eval PE, PNA, COVID: discussed risks and benefits for CTA to pt and fetus and pt agreed to CTA. -Pending CTA, antibiotics for UTI -IVF -Ofirmev (last tylenol 24hrs ago) -Albuterol neb -Dispo: pending workup and reassessment 05/19/20 22:59 CTA reviewed: no e/o PE or COVID, limited by nonvisualization of lung bases due to lead apron artifact 4 EKG reviewed: sinus tachycardia, 104bpm, normal axis, normal intervals, new TWI in V3 (compared to this AM), no ST elevations or depressions 2125 trop neg 05/19/20 23:17 UA reviewed: no ketones, +bacteria -Rocephin 1g for bacteriuria 05/19/20 23:51 Pt tolerated PO. SOB and CP improved s/p albuterol neb and tylenol. Pt just starting 2nd neb. Pending 2nd trop @0030 and reassessment s/p 3 nebs, reassess for dispo, likely admit tele obs vs d/c home with prescriptions for UTI and asthma exacerbation. Signed out to Dr Jacobo. Discharge - Discharge Information Problems reviewed: Yes Clinical Impression/Diagnosis: Vomiting, SOB (shortness of breath), Chest pain, Asthma exacerbation Condition: Stable - Follow up/Referral - Patient Discharge Instructions Additional Instructions: You have been seen in the Emergency Department for your viral upper respiratory infection and asthma exacerbation. Your EKG, CT scan of your lungs, and labs, including Troponin (a heart enzyme), show no signs concerning for an emergent condition such as a heart attack or pneumonia or pulmonary embolism (clot in your lungs). Your symptoms improved with albuterol, fluids, and tylenol. Follow-up with your primary care doctor within 1 week. Return to the Emergency Department immediately if you experience chest pain, di fficulty breathing, passing out, or any other new or worsening symptom. - Post Discharge Activity
--- NOTE | 2020-05-19 21:56 | PDOC ---
Documentation entered by Devang Thrasher SCRIBE, acting as scribe for Tosha Younger MD. Tosha Younger MD: This documentation has been prepared by the alleyibe, Devang Thrasher SCRIBE, under my direction and personally reviewed by me in its entirety. I confirm that the documentation accurately reflects all work, treatment, procedures, and medical decision making performed by me. Attending Attestation - Resident Resident Name: Tosha Peterson - ED Attending Attestation I have performed the following: I have examined & evaluated the patient, The case was reviewed & discussed with the resident, I agree w/resident's findings & plan, Exceptions are as noted - HPI HPI: 05/19/20 21:41 The patient is a 24 year old 18 weeks female with a significant past medical history of anxiety who presents to the ED for evaluation of continued vomiting and shortness of breath that began three days ago. The patient notes being unable to sleep tonight because of her shortness of breath. She endorses coming to the ED earlier this morning for shortness of breath, dull mild chest discomfort (slightly worse with deep breathing), subjective fever, sore throat,dry cough, nausea, and congestion that began . She was diagnosed with a viral syndrome and discharged home. The patient has returned to the ED because her condition has not improved and all her symptoms have persisted. The patient notes kissing a three month old family member with similar symptoms. The patient denies dizziness, chest pain, diarrhea, constipation. Denies vaginal bleeding or discharge, dysuria, hematuria, or any other symptoms. Allergies: NKDA - Physicial Exam PE: 05/19/20 21:33 GENERAL: Awake, alert, and fully oriented, appears anxious. HEAD: No signs of trauma EYES: PERRLA, EOMI, sclera anicteric, conjunctiva clear ENT: Auricles normal inspection, hearing grossly normal, nares patent, oropharynx clear without exudates. Dry mucosa NECK: Normal ROM, supple, no lymphadenopathy, JVD, or masses LUNGS: Mildly dec air entry B/L, clear to auscultation bilaterally. No wheezes, and no crackles HEART: Tachycardic with regular rate, normal S1 and S2, no murmurs, rubs or gallops ABDOMEN: Soft, nontender, normoactive bowel sounds. No guarding, no rebound. +Gravid uterus EXTREMITIES: Normal range of motion, no edema. No clubbing or cyanosis. No cords, erythema, or tenderness NEUROLOGICAL: Cranial nerves II through XII grossly intact. Normal speech, normal gait SKIN: Warm, Dry, normal turgor, no rashes or lesions noted. - Medical Decision Making 05/19/20 21:31 Pt with SOB, tachycardia. Known exposure to sick child with cough and fever. She was swabbed for COVID this AM. However, she is in her second trimester and tachycardic with SOB, will need to r/o PE. Will obtain chest CTA. Will give IV fluids for hydration, as she was vomiting earlier today. Will give abx for urine based on results from earlier today, however, will wait for CT results prior to choosing abx. 05/20/20 00:47 CTA negative for PE, and no signs of COVID. Pt reports significant improvement in symptoms s/p nebs, but is now having palpitations (expected side effect). Lung exam is improved- moving air much better now. Awaiting repeat trop and EKG. 05/20/20 03:03 Improved s/p meds and fluids. Stable for DC home. Discharge - Discharge Information Problems reviewed: Yes Clinical Impression/Diagnosis: SOB (shortness of breath) Vomiting Qualifiers: Vomiting type: unspecified Vomiting Intractability: non-intractable Nausea presence: with nausea Qualified Code(s): R11.2 - Nausea with vomiting, unspecified Chest pain Qualifiers: Chest pain type: other chest pain Qualified Code(s): R07.89 - Other chest pain; R07.8 - Other chest pain Asthma exacerbation Qualifiers: Asthma severity: moderate Asthma persistence: unspecified Qualified Code(s): J45.901 - Unspecified asthma with (acute) exacerbation Condition: Improved Disposition: HOME - Additional Discharge Information Prescriptions: predniSONE [Deltasone -] 40 mg PO DAILY #8 tablet Cephalexin [Keflex] 500 mg PO BID #14 capsule Albuterol Sulfate Inhaler - [Ventolin HFA Inhaler -] 1 - 2 inh PO QID PRN #1 inhaler PRN Reason: Short Of Breath/Wheezing - Follow up/Referral - Patient Discharge Instructions Patient Printed Discharge Instructions: DI for Asthma -- Adult, DI for Urinary Tract Infection (UTI) Additional Instructions: You have been seen in the Emergency Department for your viral upper respiratory infection and asthma exacerbation. Your EKG, CT scan of your lungs, and labs, including Troponin (a heart enzyme), show no signs concerning for an emergent condition such as a heart attack or pneumonia or pulmonary embolism (clot in your lungs). Your symptoms improved with albuterol, fluids, and tylenol. Follow-up with your primary care doctor within 1 week. Return to the Emergency Department immediately if you experience chest pain, difficulty breathing, passing out, or any other new or worsening symptom. - Post Discharge Activity
[2020-05-19] MEDS ORDERED: DEXTROSE 5%-LACTATED RINGERS 1,000 ML IV SCH (22:00)
[2020-05-19] MEDS ORDERED: ACETAMINOPHEN 1000 MG/100 ML VIAL (NON FORMULARY) IVPB ONE (22:36)
[2020-05-19] MEDS ORDERED: ACETAMINOPHEN INJECTION 100 ML IVPB ONE (22:40)
[2020-05-19 22:56] LABS: INR 0.94 (0.83-1.09); PROTHROMBIN TIME (PATIENT) 11.1 SEC (9.7-13.0)
[2020-05-19] MEDS ORDERED: ALBUTEROL SO4 0.083% IH SOL 2.5 MG/3 ML VIAL.NEB. NEB ONE ×3 (22:56→23:25)
[2020-05-19 22:58] LABS: ACTIVATED PTT 25.6 SECONDS (25.2-36.5)
[2020-05-19] MEDS ORDERED: CEFTRIAXONE 1 GM in DEXTROSE 5%-WATER - 100 ML IVPB ONE (23:03)
[2020-05-19 23:12] LABS: URINE APPEARANCE TURBID; URINE BILIRUBIN NEGATIVE (NEGATIVE); URINE COLOR YELLOW; URINE GLUCOSE (UA) NEGATIVE (NEGATIVE); URINE KETONE NEGATIVE (NEGATIVE)
[2020-05-19 23:13] LABS: PH,URINE 8.5 (5.0-8.0); URINE LEUK ESTERASE TRACE (NEGATIVE); URINE NITRITE NEGATIVE (NEGATIVE); URINE PROTEIN NEGATIVE (NEGATIVE)
[2020-05-19 23:16] LABS: EPI CELLS 17 /uL (0-25.1); HYALINE CASTS 1 /uL (0-3.1); URINE BACTERIA 1394 /uL (0-1359); URINE RBC 11 /uL (0-23.9); URINE WBC 15 /uL (0-25.8)
[2020-05-19] MEDS ORDERED: CEFTRIAXONE 1 GM/50 ML BAG ONE (23:25)
[2020-05-19] MEDS: ALBUTEROL SO4 0.083% IH SOL 2.5 MG/3 ML VIAL.NEB. NEB SCH ×2 (23:31→23:53)
--- NOTE | 2020-05-20 00:27 | PDOC ---
*Physical Exam - Vital Signs Last Vital Signs Temp Pulse Resp BP Pulse Ox 99.1 F 99 H 20 95/54 L 97 05/19/20 22:48 05/19/20 22:48 05/19/20 22:48 05/19/20 22:48 05/19/20 22:48 <Tosha Younger - Last Filed: 05/20/20 02:34> - Vital Signs Last Vital Signs Temp Pulse Resp BP Pulse Ox 99.1 F 99 H 20 95/54 L 97 05/19/20 22:48 05/19/20 22:48 05/19/20 22:48 05/19/20 22:48 05/19/20 22:48 <Zhanna Jacobo - Last Filed: 05/20/20 05:08> ED Treatment Course - ADDITIONAL ORDERS Additional order review: Laboratory Results 05/20/20 05/19/20 05/19/20 00:32 22:30 21:26 PT with INR INR PTT (Actin FS) Troponin I < 0.02 < 0.02 Urine Color Yellow Urine Appearance Turbid Urine pH 8.5 H D Ur Specific [place] 1.028 Urine Protein Negative Urine Glucose (UA) Negative Urine Ketones Negative Urine Blood Negative Urine Nitrite Negative Urine Bilirubin Negative Urine Urobilinogen 1.0 Ur Leukocyte Esterase Trace Urine WBC (Auto) 15 Urine RBC (Auto) 11 Urine Casts (Auto) 1 U Epithel Cells (Auto) 17 Urine Bacteria (Auto) 1394 05/19/20 21:20 PT with INR 11.10 INR 0.94 PTT (Actin FS) 25.6 Troponin I Urine Color Urine Appearance Urine pH Ur Specific [place] Urine Protein Urine Glucose (UA) Urine Ketones Urine Blood Urine Nitrite Urine Bilirubin Urine Urobilinogen Ur Leukocyte Esterase Urine WBC (Auto) Urine RBC (Auto) Urine Casts (Auto) U Epithel Cells (Auto) Urine Bacteria (Auto) - Medications Given in the ED: ED Medications Discontinued Medications Generic Name Dose Route Start Last Admin Trade Name Freq PRN Reason Stop Dose Admin Acetaminophen 1,000 mg 05/19/20 22:36 05/19/20 22:48 Ofirmev Injection - IVPB 05/19/20 22:37 1,000 mg ONCE ONE Administration Albuterol Sulfate 1 amp 05/19/20 22:56 05/19/20 23:14 Ventolin 0.083% Nebulizer Soln - NEB 05/19/20 22:57 1 amp ONCE ONE Administration Albuterol Sulfate 1 amp 05/19/20 23:30 05/19/20 23:53 Ventolin 0.083% Nebulizer Soln - NEB 05/19/20 23:46 1 amp Q15M BABAR Administration Ceftriaxone Sodium 1 gm/ 100 mls @ 200 mls/hr 05/19/20 23:03 05/19/20 23:31 Dextrose IVPB 05/19/20 23:32 200 mls/hr ONCE ONE Administration Prednisone 40 mg 05/20/20 00:32 05/20/20 00:50 Deltasone - PO 05/20/20 00:33 40 mg ONCE ONE Administration <Tosha Younger - Last Filed: 05/20/20 02:34> - ADDITIONAL ORDERS Additional order review: Laboratory Results 05/19/20 05/19/20 05/19/20 22:30 21:26 21:20 PT with INR 11.10 INR 0.94 PTT (Actin FS) 25.6 Troponin I < 0.02 Urine Color Yellow Urine Appearance Turbid Urine pH 8.5 H D Ur Specific [place] 1.028 Urine Protein Negative Urine Glucose (UA) Negative Urine Ketones Negative Urine Blood Negative Urine Nitrite Negative Urine Bilirubin Negative Urine Urobilinogen 1.0 Ur Leukocyte Esterase Trace Urine WBC (Auto) 15 Urine RBC (Auto) 11 Urine Casts (Auto) 1 U Epithel Cells (Auto) 17 Urine Bacteria (Auto) 1394 - Medications Given in the ED: ED Medications Discontinued Medications Generic Name Dose Route Start Last Admin Trade Name Farida PRN Reason Stop Dose Admin Acetaminophen 1,000 mg 05/19/20 22:36 05/19/20 22:48 Ofirmev Injection - IVPB 05/19/20 22:37 1,000 mg ONCE ONE Administration Albuterol Sulfate 1 amp 05/19/20 22:56 05/19/20 23:14 Ventolin 0.083% Nebulizer Soln - NEB 05/19/20 22:57 1 amp ONCE ONE Administration Albuterol Sulfate 1 amp 05/19/20 23:30 05/19/20 23:53 Ventolin 0.083% Nebulizer Soln - NEB 05/19/20 23:46 1 amp Q15M BABAR Administration Ceftriaxone Sodium 1 gm/ 100 mls @ 200 mls/hr 05/19/20 23:03 05/19/20 23:31 Dextrose IVPB 05/19/20 23:32 200 mls/hr ONCE ONE Administration <Zhanna Jacobo - Last Filed: 05/20/20 05:08> Medical Decision Making - Medical Decision Making Pt signed out to me by Dr. Peterson 24yo F hx asthma, 18w6d by US (done here today), and recent ED visit this AM presents from home for continued vomiting, chest pain, and SOB. Pending 2nd trop @0030 05/20/20 01:07 Pt has received 3 nebs, lungs CTA b/l, no wheezing appreciated. Pt states that she feels significantly improved. reports that CP improved after Tylenol. EKG: HR 122bpm, sinus tachycardia, MN 154ms, QRS 80ms, QTc 444ms; no T wave inversion in V3 as seen in previous EKG 05/20/20 01:28 Second troponin negative. Pt is tachycardic to 110s, satting 100% while ambulating, c/o nasal congestion Sent prescriptions for Keflex, prednisone, albuterol inhaler to pharmacy. Recommended patient use saline nasal spray for congestion. Patient stable for discharge. Tolerating PO, pain controlled. Informed of all lab and imaging results. Given follow up instructions and strict return precautions. Patient expressed understanding and agree to plan Disposition Discharge home <Zhanna Jacobo - Last Filed: 05/20/20 05:08> Discharge - Discharge Information Problems reviewed: Yes - Admission No <Tosha Younger - Last Filed: 05/20/20 02:34> <Zhanna Jacobo - Last Filed: 05/20/20 05:08> - Discharge Information Clinical Impression/Diagnosis: SOB (shortness of breath) Vomiting Qualifiers: Vomiting type: unspecified Vomiting Intractability: non-intractable Nausea presence: with nausea Qualified Code(s): R11.2 - Nausea with vomiting, unspecified Chest pain Qualifiers: Chest pain type: other chest pain Qualified Code(s): R07.89 - Other chest pain Asthma exacerbation Qualifiers: Asthma severity: moderate Asthma persistence: unspecified Qualified Code(s): J45.901 - Unspecified asthma with (acute) exacerbation Condition: Improved Disposition: HOME - Additional Discharge Information Prescriptions: predniSONE [Deltasone -] 40 mg PO DAILY #8 tablet Cephalexin [Keflex] 500 mg PO BID #14 capsule Albuterol Sulfate Inhaler - [Ventolin HFA Inhaler -] 1 - 2 inh PO QID PRN #1 inhaler PRN Reason: Short Of Breath/Wheezing - Patient Discharge Instructions Patient Printed Discharge Instructions: DI for Asthma -- Adult, DI for Urinary Tract Infection (UTI) Additional Instructions: You have been seen in the Emergency Department for your viral upper respiratory infection and asthma exacerbation. Your EKG, CT scan of your lungs, and labs, including Troponin (a heart enzyme), show no signs concerning for an emergent condition such as a heart attack or pneumonia or pulmonary embolism (clot in your lungs). Your symptoms improved with albuterol, fluids, and tylenol. Follow-up with your primary care doctor within 1 week. Return to the Emergency Department immediately if you experience chest pain, difficulty breathing, passing out, or any other new or worsening symptom.
[2020-05-20] MEDS ORDERED: predniSONE 20 MG TABLET (UD) PO ONE (00:32)
[2020-05-20] MEDS ORDERED: predniSONE 20 MG TABLET (UD) ONE (00:46)
[2020-05-20 03:26] VITALS: BP 114/58; PULSE 112; TEMP 98.5
--- NOTE | 2020-05-20 09:28 | EKG ---
Test Reason : Blood Pressure : / mmHG Vent. Rate : 122 BPM Atrial Rate : 122 BPM P-R Int : 154 ms QRS Dur : 080 ms QT Int : 312 ms P-R-T Axes : 058 015 046 degrees QTc Int : 444 ms SINUS TACHYCARDIA POSSIBLE LEFT ATRIAL ENLARGEMENT BORDERLINE ECG WHEN COMPARED WITH ECG OF 19-MAY-2020 22:44, NO SIGNIFICANT CHANGE WAS FOUND Confirmed by Blaine Kumari ([id number]) on 05/20/2020 9:28:38 AM Referred By: Confirmed By:Blaine Kumari
--- NOTE | 2020-05-20 09:29 | EKG ---
Test Reason : Blood Pressure : / mmHG Vent. Rate : 104 BPM Atrial Rate : 104 BPM P-R Int : 162 ms QRS Dur : 080 ms QT Int : 344 ms P-R-T Axes : 061 024 045 degrees QTc Int : 452 ms SINUS TACHYCARDIA OTHERWISE NORMAL ECG WHEN COMPARED WITH ECG OF 19-MAY-2020 09:05, NO SIGNIFICANT CHANGE WAS FOUND Confirmed by Blaine Kumari ([id number]) on 05/20/2020 9:29:22 AM Referred By: Confirmed By:Blaine Kumari
== END 2020-05-20 03:39 | disposition home or self-care (01) ==
LOC: JER 20:34
PROC: 3E03329 Introduction of Other Anti-infective into Peripheral Vein, Percutaneous Approach (ICD-10-PCS; principal; 2020-05-19)
PROC: 3E033GC Introduction of Other Therapeutic Substance into Peripheral Vein, Percutaneous Approach (ICD-10-PCS; 2020-05-19)
PROC: 3E0F7GC Introduction of Other Therapeutic Substance into Respiratory Tract, Via Natural or Artificial Opening (ICD-10-PCS; 2020-05-19)
DX: R11.2 Nausea with vomiting, unspecified (principal); R07.89 Other chest pain; R06.02 Shortness of breath; J45.901 Unspecified asthma with (acute) exacerbation
CPT/HCPCS: 36415; 71275-TC; 81003; 84484; 85610; 85730; 93005; 93010; 99285-25; J0131; Q9967

== ENCOUNTER 2020-10-19 07:00 | Inpatient (IN) | payer OTHER ==
[2020-10-19 07:45] VITALS: BMI 42.5
[2020-10-19] MEDS: DEXTROSE 5%-LACTATED RINGERS 1,000 ML IV SCH ×2 (08:00→15:18)
[2020-10-19] MEDS ORDERED: OXYTOCIN 30 UNITS in 0.9% NS 30 UNIT/500 ML INFUS.BAG IVPB ONE (09:52)
[2020-10-19 09:55] LABS: BASO % 0.2 % (0-2.0); EOS % 0.7 % (0-4.5); HEMATOCRIT 35.1 % (32.4-45.2); HEMOGLOBIN 11.6 GM/dL (10.7-15.3); LYMPH % 19.9 % (8-40); MCH 26.3 pg (25.7-33.7); MEAN CELL VOLUME 79.7 fl (80-96); MEAN PLT VOLUME 9.3 fl (7.5-11.1); MONO % 4.8 % (3.8-10.2); NEUT % 74.4 % (42.8-82.8); PLATELET COUNT 216 K/MM3 (134-434); RDW 15.7 % (11.6-15.6); WHITE BLOOD COUNT 13.8 K/mm3 (4.0-10.0)
[2020-10-19 09:56] LABS: INR 0.94 (0.83-1.09); PROTHROMBIN TIME (PATIENT) 11.4 SEC (9.7-13.0)
[2020-10-19 09:59] LABS: ACTIVATED PTT 24.3 SECONDS (25.2-36.5)
[2020-10-19] MEDS ORDERED: OXYTOCIN 30 UNITS in 0.9% NS 30 UNIT/500 ML INFUS.BAG IVPB SCH (10:00)
[2020-10-19 10:15] LABS: ALBUMIN 2.6 g/dl (3.4-5.0); BLOOD UREA NITROGEN 10.2 mg/dL (7-18); CALCIUM 8.5 mg/dL (8.5-10.1)
[2020-10-19 10:18] LABS: URIC ACID 4.3 mg/dL (2.6-7.2)
[2020-10-19 10:19] LABS: CREATININE 0.5 mg/dL (0.55-1.3)
[2020-10-19 10:20] LABS: BILIRUBIN,TOTAL 0.7 mg/dL (0.2-1); TOT PROT 6.1 g/dl (6.4-8.2)
[2020-10-19] MEDS ORDERED: BUTORPHANOL TARTRATE 1 MG/ML VIAL IVPUSH ONE (18:33)
[2020-10-19] MEDS ORDERED: PROMETHAZINE HCL 25 MG/1 ML VIAL IVPUSH ONE (18:33)
[2020-10-19] MEDS ORDERED: BUTORPHANOL TARTRATE 2 MG/ML VIAL ONE (18:33)
[2020-10-19] MEDS ORDERED: BUPIVACAINE HCL/PF 0.25% (2.5MG/ML) 10 ML VIAL ONE (21:58)
[2020-10-19] MEDS ORDERED: ELECTROLYTE-148 SOLN 1,000 ML IV SCH (22:00)
[2020-10-19] MEDS ORDERED: FENTANYL/BUPIVACAINE/NS/PF - PCEA - 50 ML DISP.SYRIN EP ONE (22:01)
[2020-10-20] MEDS ORDERED: FENTANYL/BUPIVACAINE/NS/PF - PCEA - 50 ML DISP.SYRIN EP ONE (01:37)
[2020-10-20] MEDS ORDERED: BUPIVACAINE HCL/PF 0.25% (2.5MG/ML) 10 ML VIAL ONE (01:49)
[2020-10-20] MEDS ORDERED: OXYTOCIN 20 UNITS in 0.9% NS 20 UNIT/1,000 ML INFUS.BAG IV ONE (05:52)
[2020-10-20] MEDS ORDERED: LIDOCAINE HCL 1% PRESERVATIVE FREE - 30ML VIAL ONE (05:52)
[2020-10-20] MEDS ORDERED: OXYTOCIN 20 UNITS in 0.9% NS 20 UNIT/1,000 ML INFUS.BAG IV SCH (06:15)
[2020-10-20 08:19] LABS: CORD BASE EXCESS -6.6 mmol/L (0-2); CORD HCO3 21.4 mmHg (20-29); CORD PCO2 51.2 mmHg (30-78); CORD pH 7.239 (7.14-7.44)
[2020-10-20 08:27] LABS: CORD PCO2 51.1 mmHg (30-78); CORD pH 7.232 (7.14-7.44)
[2020-10-20] MEDS ORDERED: BENZOCAINE 28 GM HEMORRHOIDAL OINTMENT TP PRN (08:52)
[2020-10-20] MEDS ORDERED: METHYLERGONOVINE MALEATE 0.2 MG/1 ML AMP IM PRN (08:52)
[2020-10-20] MEDS ORDERED: BENZOCAINE 20% 57 GM BOTTLE TP PRN (08:52)
[2020-10-20] MEDS ORDERED: BISACODYL 10 MG SUPP.RECT RC PRN (08:52)
[2020-10-20] MEDS ORDERED: WITCH HAZEL 50% (TUCKS) 40 PAD/JAR PAD TP PRN (08:52)
[2020-10-20] MEDS: IBUPROFEN 600 MG TABLET (FP) PO PRN ×2 (11:26→16:36)
[2020-10-20] MEDS: PRENATAL VITAMINS W/ FOLIC ACID TABLET (FP) PO SCH (11:27)
[2020-10-20] MEDS: ACETAMINOPHEN 325 MG TABLET (FP) PO PRN ×2 (11:27→16:36)
[2020-10-20] MEDS: FERROUS SO4 325 MG TABLET (FP) PO SCH (16:36)
[2020-10-21 08:34] LABS: BASO % 0.4 % (0-2.0); EOS % 0.7 % (0-4.5); HEMATOCRIT 30.1 % (32.4-45.2); HEMOGLOBIN 9.9 GM/dL (10.7-15.3); LYMPH % 21.9 % (8-40); MCH 26.2 pg (25.7-33.7); MCHC 32.7 g/dl (32.0-36.0); MEAN PLT VOLUME 9.1 fl (7.5-11.1); MONO % 4.5 % (3.8-10.2); NEUT % 72.5 % (42.8-82.8); PLATELET COUNT 174 K/MM3 (134-434); RBC 3.77 M/mm3 (3.60-5.2); RDW 16.4 % (11.6-15.6); WHITE BLOOD COUNT 16.1 K/mm3 (4.0-10.0)
[2020-10-21] MEDS: FERROUS SO4 325 MG TABLET (FP) PO SCH (08:56)
[2020-10-21] MEDS: PRENATAL VITAMINS W/ FOLIC ACID TABLET (FP) PO SCH (09:37)
[2020-10-21 16:06] VITALS: BP 112/68; PULSE 88; TEMP 98.2
[2020-10-21] MEDS ORDERED: SENNOSIDES/DOCUSATE COMBO (SENNA PLUS) TABLET (UD) PO PRN (22:00)
== END 2020-10-21 13:55 | disposition home or self-care (01) | DRG 560 ==
LOC: JLDR 07:00 → J3W 10-20 10:15
PROVIDERS: ADMIT Obstetrics & Gynecology; ATTEND Obstetrics & Gynecology
PROC: 10E0XZZ Delivery of Products of Conception, External Approach (ICD-10-PCS; principal; 2020-10-20)
PROC: 0KQM0ZZ Repair Perineum Muscle, Open Approach (ICD-10-PCS; 2020-10-20)
PROC: 0W8NXZZ Division of Female Perineum, External Approach (ICD-10-PCS; 2020-10-20)
DX: O70.1 Second degree perineal laceration during delivery (principal); O48.0 Post-term pregnancy; O69.1XX0 Labor and delivery complicated by cord around neck, with compression, not applicable or unspecified; Z3A.40 40 weeks gestation of pregnancy; O99.214 Obesity complicating childbirth; Z37.0 Single live birth
CPT/HCPCS: 36415; 36600; 59409; 80053; 82803; 84550; 85025; 85610; 85730; 86780; 86850; 86900; 86901